=== PATIENT | female | born 1960 | race African-American/Black ===

== ENCOUNTER 2024-01-22 14:00 | Outpatient (RCR) | payer MEDICARE, OTHER, SELFPAY ==
[2023-12-17 14:11] VITALS: BP 132/69; PULSE 54; O2SAT 98
== END 2024-01-22 15:34 | disposition home or self-care (01) ==
LOC: HO.PT 14:00
PROVIDERS: PCP Family Medicine; Visit Provider Family Medicine
DX: M54.32 Sciatica, left side (principal)
CPT/HCPCS: 97110; 97140; 97161